=== PATIENT | female | born 1990 | race Caucasian/White ===

== ENCOUNTER 2016-07-30 10:05 | Inpatient (IN) | payer SELFPAY ==
[~2016-07-30] VITALS: Ht 162.6 cm; Wt 54.5 kg
[2016-07-30] VITALS (7 sets, daily range): BP systolic 100–137; BP diastolic 61–98; PULSE 62–112; RESP 15–20; TEMP 97.8–98.1; O2SAT 96–99
[~2016-07-30 10:05] MED LIST: CIPR-9 PO; FAMO20TA2 PO; FERR325T PO; MULT-135 PO; OXYC20TA17 PO; PROB1CAP12 PO; SENN1TAB PO; SUBO2MIS SL; XARE15TA PO; XARE20TA PO
--- NOTE | 2016-07-30 11:29 | PD ---
HPI Chief Complaint: Pain: Acute or Chronic Time Seen by Provider: 11:29 Travel History International Travel<30 days: No Contact w/Intl Traveler<30days: No Traveled to known affect area: No History of Present Illness HPI 25-year-old female with a history of IV drug use, endocarditis, DVT, septic pulmonary emboli presents to the emergency department for evaluation of chest wall pain and right thigh pain. Patient states that she left AMA from [facility] 2 weeks ago after having a valve replacement with pacemaker implantation about 3 weeks ago. States that she's had chest wall pain that she describes as soreness and is concerned because she still has wires coming from her right chest wall. States she's had a productive cough for the past several days with mild shortness of breath. States that yesterday she began to have pain in her right anterior thigh, states there is a tender lump on the thigh, aggravated with movement and weightbearing. Denies any injury or trauma to her leg. Complains of subjective fever and chills. Denies lightheadedness, dizziness, nausea, vomiting, abdominal pain. She admits to using IV drug use twice since she was discharged from the hospital, last used heroin one week ago. She has not followed up with her cardiothoracic surgeon and since she left AM she has been on no medications. No other complaints. PFSH Past Medical History Autoimmune Disease: No Anxiety: Yes Depression: Yes Cancer: Yes Cardiovascular Problems: Yes Diminished Hearing: No Endocrine: No Genitourinary: Yes (ENDOMETRIOSIS) Hypertension: Yes Immune Disorder: No Implanted Vascular Access Dvce: No Kidney Stones: Yes Musculoskeletal: Yes (SCOLIOSIS) Psychiatric: No Reproductive: Yes (endometriosis) Immunizations Current: Yes Seizures: Yes (only when pt comes off anxiety medications) Tetanus Vaccination: < 5 Years ?: Not Menopausal: No Ovarian Cysts: Yes Past Surgical History Other Surgery: Yes (valve replacement, pacemaker 2 weeks ago july 2016 ) Social History Alcohol Use: Yes (750ML DAILY) Tobacco Use: Yes Substance Use: Yes (heroin, OPIATES , IV DRUG ABUSE , LAST USE ) Allergies-Medications (Allergen,Severity, Reaction): Coded Allergies: Amoxicillin (Verified Allergy, Severe, hive, 07/30/16) Tolerated Cephalosporins well. Aspirin (Verified Allergy, Severe, BLEEDING, 07/30/16) Azithromycin (Verified Allergy, Severe, HIVES, 07/30/16) Latex (Verified Allergy, Severe, Anaphylaxis, 07/30/16) *MDRO Multi-Drug Resistant Organism (Verified Adverse Reaction, Unknown, ) MRSA PCR Screen POSITIVE - 02/26/2016 Reported Meds & Prescriptions Reported Meds & Active Scripts Active No Active Prescriptions or Reported Medications Review of Systems Except as stated in HPI: all other systems reviewed are Neg Physical Exam Narrative GENERAL: Well-nourished and well-developed female patient in no acute distress. SKIN: Warm and dry. HEAD: Normocephalic and atraumatic. EYES: No injection, drainage, or hyphema noted. PERRLA. EOMI. ENT: No nasal drainage noted. Oropharynx is clear. NECK: Supple and the trachea is midline. CARDIOVASCULAR: Regular rate and rhythm. RESPIRATORY: Left lower lobe wheeze. No accessory muscle use, rhonchi, or crackles. CHEST: There is a healing surgical incision to right upper chest wall with no erythema or warmth. There are two healing incisions to right lower chest wall, one has 2 blue pacer wires coming out, no surrounding erythema or warmth. Pacemaker surgical site noted to be healing well with no signs of infection. Patient has global chest wall tenderness. GASTROINTESTINAL: Abdomen is soft, non-tender, and nondistended. MUSCULOSKELETAL: There is slight swelling to right anterior thigh just above the knee with exquisite tenderness to palpation. No obvious deformities, cyanosis, or ecchymosis is present throughout the upper and lower extremities. Patient has full range of motion without any signs of neurovascular compromise. DP pulses are 2+ bilaterally. NEUROLOGICAL: Awake, alert, and oriented. Normal speech and gait. Cranial nerves are grossly intact. Data Data Last Documented VS Vital Signs Date Time Temp Pulse Resp B/P Pulse Ox O2 Delivery O2 Flow Rate FiO2 07/30/16 14:57 106 20 117/75 99 07/30/16 10:07 98.1 Orders Electrocardiogram (07/30/16 11:28) Ckmb (Isoenzyme) Profile (07/30/16 11:28) Complete Blood Count With Diff (07/30/16 11:28) Comprehensive Metabolic Panel (07/30/16 11:28) Magnesium (Mg) (07/30/16 11:28) Prothrombin Time / Inr (Pt) (07/30/16 11:28) Act Partial Throm Time (Ptt) (07/30/16 11:28) Troponin I (07/30/16 11:28) Chest, Single Ap (07/30/16 11:28) Ecg Monitoring (07/30/16 11:28) Iv Access Insert/Monitor (07/30/16 11:28) Oximetry (07/30/16 11:28) Sodium Chloride 0.9% Flush (Ns Flush) (07/30/16 11:30) Ed Urine Pregnancytest Poc (07/30/16 11:28) Us Leg Venous Doppler (07/30/16 ) Lactic Acid Sepsis Protocol (07/30/16 11:30) C-Reactive Protein (Crp) (07/30/16 11:32) Westergren Sedimentation Rate (07/30/16 11:32) Femur (Ap & Lat/2vws) (07/30/16 ) Blood Culture (07/30/16 11:40) Ct Pulmonary Angiogram (07/30/16 12:43) Iohexol 350 Inj (Omnipaque 350 Inj) (07/30/16 13:33) Lorazepam Inj (Ativan Inj) (07/30/16 14:00) Hydromorphone Pf Inj (Dilaudid Pf Inj) (07/30/16 15:00) Admit To Inpatient (07/30/16 ) Code Status (07/30/16 15:21) Vital Signs (Adult) Q4H (07/30/16 15:21) Activity Oob Ad Glenda (07/30/16 15:21) Bedside Glucose JULES.AC&HS (07/30/16 15:21) Sugar Presser / Telemetry .CONTINUOUS (07/30/16 15:21) Intake + Output JULES.QSHIFT (07/30/16 15:21) ^ Notify Dr: Other (07/30/16 15:21) Diet Heart Healthy (07/30/16 Dinner) Sodium Chlor 0.9% 1000 Ml Inj (Ns 1000 M (07/30/16 15:21) Sodium Chloride 0.9% Flush (Ns Flush) (07/30/16 15:30) Sodium Chloride 0.9% Flush (Ns Flush) (07/30/16 21:00) Acetaminophen (Tylenol) (07/30/16 15:30) Ondansetron Inj (Zofran Inj) (07/30/16 15:30) Metoclopramide Inj (Reglan Inj) (07/30/16 15:30) Bisacodyl Supp (Dulcolax Supp) (07/30/16 15:30) Docusate Sodium (Colace) (07/30/16 15:30) Basic Metabolic Panel (Bmp) (07/31/16 06:00) Complete Blood Count With Diff (07/31/16 06:00) Creatine Kinase (Cpk) (07/30/16 15:21) Creatine Kinase (Cpk) (07/30/16 21:21) Troponin I (07/30/16 15:21) Troponin I (07/30/16 21:21) Prothrombin Time / Inr (Pt) (07/31/16 06:00) Blood Culture (07/30/16 15:21) Urinalysis - C+S If Indicated (07/30/16 15:21) Lipase (07/31/16 06:00) Enoxaparin Inj (Lovenox Inj) (07/30/16 15:30) Naloxone Inj (Narcan Inj) (07/30/16 15:30) Inpatient Certification (07/30/16 ) Labs Laboratory Tests Test 07/30/16 07/30/16 11:50 12:55 White Blood Count 10.1 TH/MM3 Red Blood Count 4.74 MIL/MM3 Hemoglobin 12.0 GM/DL Hematocrit 37.7 % Mean Corpuscular Volume 79.5 FL Mean Corpuscular Hemoglobin 25.4 PG Mean Corpuscular Hemoglobin 31.9 % Concent Red Cell Distribution Width 20.0 % Platelet Count 342 TH/MM3 Mean Platelet Volume 7.5 FL Neutrophils (%) (Auto) 55.6 % Lymphocytes (%) (Auto) 33.5 % Monocytes (%) (Auto) 6.4 % Eosinophils (%) (Auto) 3.4 % Basophils (%) (Auto) 1.1 % Neutrophils # (Auto) 5.6 TH/MM3 Lymphocytes # (Auto) 3.4 TH/MM3 Monocytes # (Auto) 0.6 TH/MM3 Eosinophils # (Auto) 0.3 TH/MM3 Basophils # (Auto) 0.1 TH/MM3 CBC Comment AUTO DIFF Differential Comment AUTO DIFF CONFIRMED Platelet Estimate NORMAL Platelet Morphology Comment NORMAL Sodium Level 138 MEQ/L Potassium Level 3.8 MEQ/L Chloride Level 105 MEQ/L Carbon Dioxide Level 25.6 MEQ/L Anion Gap 7 MEQ/L Blood Urea Nitrogen 9 MG/DL Creatinine 0.62 MG/DL Estimat Glomerular Filtration 116 ML/MIN Rate Random Glucose 95 MG/DL Lactic Acid Level 1.1 mmol/L Calcium Level 9.7 MG/DL Magnesium Level 2.1 MG/DL Total Bilirubin 0.7 MG/DL Aspartate Amino Transf 17 U/L (AST/SGOT) Alanine Aminotransferase 17 U/L (ALT/SGPT) Alkaline Phosphatase 131 U/L Total Creatine Kinase 43 U/L Troponin I LESS THAN 0.02 NG/ML C-Reactive Protein 1.91 MG/DL Total Protein 8.2 GM/DL Albumin 3.9 GM/DL Erythrocyte Sedimentation Rate 22 mm/hr Prothrombin Time 11.5 SEC Prothromb Time International 1.0 RATIO Ratio Activated Partial 26.5 SEC Thromboplast Time MDM Medical Decision Making Medical Screen Exam Complete: Yes Emergency Medical Condition: Yes Differential Diagnosis Pneumonia versus DVT versus endocarditis versus pleural effusion versus sepsis Narrative Course 25-year-old female with a history of IV drug use and endocarditis status post recent valve replacement 3 weeks ago presents to the emergency department for evaluation of chest wall pain, cough, shortness of breath and right thigh pain. Patient is afebrile. She is tachycardic with a heart rate of 112 bpm. Otherwise vital signs within normal limits. The patient has surgical scars noted on her chest wall from her recent surgery, all of which appear to be healing well with no signs of infection. There are however to pacer wires still inserted in the right lower wall. The patient left AGAINST MEDICAL ADVICE from [facility] 2 weeks ago, is not on any medications and continues to use IV drugs. EKG shows ventricular paced rhythm at 85 bpm, no evidence of acute ischemia as read by my attending physician Dr. San. IV access was obtained, labs have been drawn and sent. Patient is placed on cardiac telemetry and pulse oximetry monitoring. Records have been requested from [facility]. Per records from [facility] she had Tricuspid valve replacement 06/28/[address] Brown, [facility] dual chamber pacemaker implantation 07/05/[address] Odonnell for symptomatic bradycardia and complete heart block. CBC is unremarkable. Sedimentation rate is slightly elevated at 22. CMP is unremarkable. Troponin is less than 0.02. CRP is slightly elevated at 1.91. Lactic acid is 1.1. Coags are unremarkable. X-ray of the right femur is negative for any acute abnormalities. Ultrasound of right leg is negative for DVT. Chest x-ray shows dual-lead cardiac pacemaker in place, atelectasis or scarring in the right midlung, 6 cm rounded density in the right upper lung may represent object external to the patient or mass. CT pulmonary angiogram shows developing nodules in the right chest which are concerning for possible neoplastic process, largest nodule is identified bilaterally in the right upper lobe measuring 3.9 cm in diameter. Bihilar adenopathy has progressed from the prior study. This appears to result in an occlusion of the right lower lobe pulmonary artery with a high grade ostial stenosis of the left lower lobe pulmonary artery. There is no luminal filling defect seen to suggest pulmonary embolus. Findings are concerning for possible neoplastic process. I reviewed the medical records from the patient's recent admission at [facility]. She had a CT pulmonary angiogram performed their 06/19/16 that did not show these nodules in the right upper lobe. At that time it showed she had extensive pulmonary emboli with occlusion of lobar, segmental and subsegmental pulmonary arteries with bilateral lung infiltrates. These lung masses are new and the patient will need to be admitted to the hospital for further evaluation and treatment. Physician Communication Physician Communication My attending physician Dr. San spoke with Dr. Brown CT surgeon at [facility] regarding the patient's epidermal pacer wires and he recommended that they be cut to the skin. My attending physician Dr. San spoke with Dr. Gomez [facility] who agrees to admit the patient to his service. Diagnosis Primary Impression: Lung mass Additional Impressions: History of endocarditis S/P tricuspid valve replacement IV drug user Admitting Information Admitting Physician Requests: Admit Scripts No Active Prescriptions or Reported Meds Celsa Mcclellan Jul 30, 2016 11:29
[2016-07-30] MEDS ORDERED: SODIUM CHLORIDE 0.9% FLUSH 10 ML FLUSH IVF PRN (11:30)
--- NOTE | 2016-07-30 12:07 | RADRPT ---
EXAM DATE/TIME: 07/30/2016 11:46 [facility] COMPARISON: No previous studies available for comparison. INDICATIONS : Right leg swelling. MEDICAL HISTORY : Hypertension. Substance use. Endometriosis. Ovarian cysts. Kidney stones. MRSA. SURGICAL HISTORY : Pacemaker. ENCOUNTER: Initial ACUITY: 3 days PAIN SCORE: 4/10 LOCATION: Right leg. TECHNIQUE: Venous ultrasound of the leg was performed from the inguinal ligament to the proximal calf. Real-vanesa e, color Doppler and spectral tracing, compression and augmentation techniques were used. FINDINGS: There is normal compressibility of the deep venous system from the inguinal region to the proximal ca lf. No echogenic clot is seen in the lumen of the common femoral, femoral, popliteal, and posterior tibial veins. There is a normal response of the venous system to proximal and distal augmentation an d respiration. CONCLUSION: 1. No evidence of deep venous thrombosis. Hua Wise MD on July 30, 2016 at 12:05 Board Certified Radiologist. This report was verified electronically.
--- NOTE | 2016-07-30 12:10 | RADRPT ---
EXAM DATE/TIME: 07/30/2016 11:40 [facility] COMPARISON: CHEST SINGLE AP, March 24, 2016, 23:27. INDICATIONS : Patient states no known injury, just having pain all over. MEDICAL HISTORY : Hypertension. Endometriosis. SURGICAL HISTORY : Pacemaker. ENCOUNTER: Initial ACUITY: 1 day PAIN SCORE: 10/10 LOCATION: Bilateral chest FINDINGS: Single AP view of the chest. Dual-lead cardiac pacemaker is in place. 6 cm ovoid density is seen in t he right upper lung zone. May represent object external to the patient. Mild scarring or atelectasis in the right midlung. No evidence of pleural effusion or pneumothorax. Cardiomediastinal silhouette u nchanged. CONCLUSION: 1. Dual lead cardiac pacemaker in place. 2. Minimal atelectasis or scarring in the right midlung. 3. 6 cm rounded density in the right upper lung zone may represent an object external to the patient or a mass. Recommend examination of the patient for objects in this region. Monster Jose MD on July 30, 2016 at 12:05 Board Certified Radiologist. This report was verified electronically.
[2016-07-30 12:15] LABS: AUTOMATED NEUTROPHIL # 5.6 TH/MM3 (1.8-7.7); BASOPHIL # 0.1 TH/MM3 (0-0.2); BASOPHIL % 1.1 % (0.0-2.0); EOSINOPHIL # 0.3 TH/MM3 (0-0.4); EOSINOPHIL % 3.4 % (0.0-4.0); HEMATOCRIT 37.7 % (35.0-46.0); LYMPH % 33.5 % (9.0-44.0); LYMPHOCYTE # 3.4 TH/MM3 (1.0-4.8); MEAN CELL VOLUME 79.5 FL (80.0-100.0); MEAN CORPUSCULAR HEMOGLOBIN 25.4 PG (27.0-34.0); MEAN CORPUSCULAR HGB CONC 31.9 % (32.0-36.0); MONO % 6.4 % (0.0-8.0); NEUT % 55.6 % (16.0-70.0); PLATELET COUNT 342 TH/MM3 (150-450); RED BLOOD COUNT 4.74 MIL/MM3 (4.00-5.30); WHITE BLOOD COUNT 10.1 TH/MM3 (4.0-11.0)
[2016-07-30 12:19] LABS: HEMO FLAGS AUTO DIFF
[2016-07-30 12:23] LABS: ALT (GPT) 17 U/L (10-53); ANION GAP 7 MEQ/L (5-15); AST (GOT) 17 U/L (15-37); BICARBONATE 25.6 MEQ/L (21.0-32.0); BLOOD UREA NITROGEN 9 MG/DL (7-18); CHLORIDE 105 MEQ/L (98-107); GLOMERULAR FILTRATION RATE 116 ML/MIN (>89); MAGNESIUM 2.1 MG/DL (1.5-2.5); POTASSIUM 3.8 MEQ/L (3.5-5.1); SODIUM (NA) 138 MEQ/L (136-145)
[2016-07-30 12:27] LABS: ALKALINE PHOSPHATASE 131 U/L (45-117); TOTAL BILIRUBIN ADULT 0.7 MG/DL (0.2-1.0)
[2016-07-30 12:36] LABS: CREATINE KINASE 43 U/L (26-192)
[2016-07-30 12:47] LABS: PLATELET ESTIMATE SMEAR NORMAL (NORMAL); PLATELET MORPHOLOGY NORMAL (NORMAL); SCAN/DIFF AUTO DIFF CONFIRMED
[2016-07-30 13:25] LABS: APTT (PATIENT) 26.5 SEC (24.3-30.1); PROTHROMBIN TIME - PATIENT 11.5 SEC (9.8-11.6)
[2016-07-30] MEDS ORDERED: IOHEXOL 350 MG/ML 10 ML VIAL (for RAD DIAG) IV ONE (13:33)
--- NOTE | 2016-07-30 13:54 | RADRPT ---
EXAM DATE/TIME: 07/30/2016 12:36 [facility] COMPARISON: No previous studies available for comparison. INDICATIONS : Distal right lateral femur pain. No known injury. MEDICAL HISTORY : Hypertension. Renal calculi. Endometriosis. Ovarian cysts. MRSA. Substance use. SURGICAL HISTORY : Pacemaker. ENCOUNTER: Initial ACUITY: 2 days PAIN SCORE: 7/10 LOCATION: Right distal lateral femur FINDINGS: 4 views of the right femur. Bone alignment within normal limits. No evidence of fracture. CONCLUSION: No evidence of fracture. Monster Jose MD on July 30, 2016 at 13:52 Board Certified Radiologist. This report was verified electronically.
[2016-07-30] MEDS ORDERED: LORazepam 2 MG/ML VIAL IV PUSH ONE (14:00)
--- NOTE | 2016-07-30 14:25 | RADRPT ---
EXAM DATE/TIME: 07/30/2016 13:07 This report includes an Addendum and supersedes previous reports for this exam. [facility] COMPARISON: CT PULMONARY ANGIOGRAM, April 01, 2016, 11:01. INDICATIONS : Chest pain. IV CONTRAST: 75 cc Omnipaque 350 (iohexol) IV RADIATION DOSE: 75 CTDIvol (mGy) MEDICAL HISTORY : Hypertension. Cancer. SURGICAL HISTORY : Pacemaker. Valve replacement. ENCOUNTER: Initial ACUITY: 2 days PAIN SCALE: 10/10 LOCATION: Bilateral chest TECHNIQUE: Volumetric scanning of the chest was performed using a pulmonary embolism protocol MIP images were re constructed. Using automated exposure control and adjustment of the mA and/or kV according to patien t size, radiation dose was kept as low as reasonably achievable to obtain optimal diagnostic quality images. FINDINGS: PULMONARY ARTERIES: While I do not see an actual filling defect in the pulmonary artery, there appears to be complete occ lusion of the right lower lobe pulmonary artery. I believe this is due to external compression as the re is regional bulky adenopathy. Similarly, a high grade stenosis involves the origin of the left low er lobe pulmonary artery. LUNGS: There is some atelectatic changes or scarring laterally in the left base adjacent diaphragm. However, there are now nodular densities in developing in the right lower lobe extending from the bulky adeno jorge luis in the right hilar region. These measure upwards 1.7 cm in diameter. The largest nodule is pleu ral-based laterally in the right upper lung measuring 3.9 cm in diameter. PLEURAE: Large, 3.9 cm pleural-based nodule in the lateral right upper extremity some pleural thickening poste riorly in the right hemithorax. MEDIASTINUM: By hilar prominent lymph nodes, right greater than left. Anatomic variant of the aortic arch with the left vertebral emanating directly from the arch MUSCULOSKELETAL: Within normal limits for patient age. MISCELLANEOUS: The visualized upper abdominal organs demonstrate no acute abnormality. CONCLUSION: 1. Patient has a history of septic emboli. However, there are developing nodules particularly in the right chest which are concerning for a possible neoplastic process. Largest nodule is identified late rally in the right upper lobe measuring 3.9 cm in diameter. 2. Bihilar adenopathy has progressed from the prior study. In fact, this appears to result in occlusi on of the right lower lobe pulmonary artery with a high-grade ostial stenosis of the left lower lobe pulmonary artery. 3. I do not see a luminal filling defect to suggest pulmonary embolus, however. Again, findings are c oncerning for possible neoplastic process José Valderrama MD on July 30, 2016 at 14:13 Board Certified Radiologist. This report was verified electronically. ADDENDUM: I discussed this case with Dr. San from the emergency department. He states the patient is a known I V drug user with a recent valvular replacement. With this information, this could again represent lar ge septic emboli pre-cavitation. The bulky hilar adenopathy may also be related to the infectious pro cess and could still be causing external compression on the pulmonary arteries. Also noted is occlusi on of one of the lower lobe branch vessels to the lateral left lower lobe. The nodular lesions would be amenable to biopsy if clinically warranted. José Valderrama MD on July 30, 2016 at 14:41 Board Certified Radiologist. This report was verified electronically.
[2016-07-30] MEDS ORDERED: HYDROmorphone HCL PF 1 MG/ML VIAL IV PUSH ONE (15:00)
[2016-07-30] MEDS ORDERED: NALOXONE HCL 0.4 MG/ML AMP IV PRN (15:30)
[2016-07-30] MEDS ORDERED: BISACODYL 10 MG SUPP PR PRN (15:30)
[2016-07-30] MEDS ORDERED: SODIUM CHLORIDE 0.9% FLUSH 10 ML FLUSH IV FLUSH PRN (15:30)
[2016-07-30] MEDS ORDERED: ONDANSETRON HCL 4 MG/2 ML VIAL IVP PRN (15:30)
[2016-07-30] MEDS ORDERED: METOCLOPRAMIDE HCL 10 MG/2 ML VIAL IV PUSH PRN (15:30)
[2016-07-30] MEDS ORDERED: ACETAMINOPHEN 325 MG TAB PO PRN (15:30)
--- NOTE | 2016-07-30 15:39 | HHI.HP ---
[facility] No Primary Care Physician Admission Diagnosis lung mass, rule out bacteremia/endocarditis Diagnoses: Chief Complaint: Chest pain Travel History International Travel<30 Days: No Contact w/Intl Traveler <30 Da: No Traveled to Known Affected Are: No History of Present Illness This is a pleasant 25 y/o Female with history of IV drug abuse, Endocarditis, DVT , septic Pulmonary Emboli, who came to Emergency department with chest wall pain and right thigh pain, she left AMA from [facility] 2 weeks ago after having a valve replacement with pacemaker Implantation about 3 weeks ago, had chest wall pain that she describes as soreness and is concerned because she still has wires coming from her right chest wall. States she's had a productive cough for the past several days with mild shortness of breath. States that yesterday she began to have pain in her right anterior thigh, states there is a tender lump on the thigh, aggravated with movement and weightbearing. Denies any injury or trauma to her leg. Complains of subjective fever and chills. Denies lightheadedness, dizziness, nausea, vomiting, abdominal pain. She admits to using IV drug use twice since she was discharged from the hospital, last used heroin one week ago. She has not followed up with her cardiothoracic surgeon and since she left [place] she has been on no medications. Stable seen in the room in the presence of nurse at all times, the patient answers my questions with attitude and starts talking with her Cellphone trying to avoid me, the nurse asked her to stop using her phone, and she answered my questions, states her pain is generalized on all her chest. Review of Systems Cardiovascular: COMPLAINS OF: Chest pain Past Family Social History Past Medical History Anxiety Disorder Depression Endometriosis Hypertension Kidney stones Seizure disorder by history Past Surgical History Valve replacement, pacemaker 2 weeks ago july 2016 Reported Medications Reported Meds & Active Scripts Active No Active Prescriptions or Reported Medications Allergies: Coded Allergies: Amoxicillin (Verified Allergy, Severe, hive, 07/30/16) Tolerated Cephalosporins well. Aspirin (Verified Allergy, Severe, BLEEDING, 07/30/16) Azithromycin (Verified Allergy, Severe, HIVES, 07/30/16) Latex (Verified Allergy, Severe, Anaphylaxis, 07/30/16) *MDRO Multi-Drug Resistant Organism (Verified Adverse Reaction, Unknown, ) MRSA PCR Screen POSITIVE - 02/26/2016 Active Ordered Medications Current Medications Medications (Trade) Dose Ordered Sig/Neto Route Start Time Stop Time Status Last Admin (NS Flush) 2 ml UNSCH PRN IVF 07/30/16 11:30 Family History She states I do not know. Social History Alcohol abuse daily heavy tobacco dependence Heroin, Opiates, IV drug abuse. Physical Exam Vital Signs Vital Signs Date Time Temp Pulse Resp B/P Pulse Ox O2 Delivery O2 Flow Rate FiO2 07/30/16 14:57 106 20 117/75 99 07/30/16 12:44 99 07/30/16 10:07 98.1 112 17 137/98 96 Physical Exam GENERAL: Well-nourished and well-developed female patient in no acute distress. SKIN: Warm and dry. HEAD: Normocephalic and atraumatic. EYES: No injection, drainage, or hyphema noted. PERRLA. EOMI. ENT: No nasal drainage noted. Oropharynx is clear. NECK: Supple and the trachea is midline. CARDIOVASCULAR: Regular rate and rhythm. RESPIRATORY: Left lower lobe wheeze. No accessory muscle use, rhonchi, or crackles. CHEST: There is a healing surgical incision to right upper chest wall with no erythema or warmth. There are two healing incisions to right lower chest wall, one has 2 blue pacer wires coming out, no surrounding erythema or warmth. Pacemaker surgical site noted to be healing well with no signs of infection. Patient has global chest wall tenderness. GASTROINTESTINAL: Abdomen is soft, non-tender, and nondistended. MUSCULOSKELETAL: There is slight swelling to right anterior thigh just above the knee with exquisite tenderness to palpation. No obvious deformities, cyanosis, or ecchymosis is present throughout the upper and lower extremities. Patient has full range of motion without any signs of neurovascular compromise. DP pulses are 2+ bilaterally. NEUROLOGICAL: Awake, alert, and oriented. Normal speech and gait. Cranial nerves are grossly intact. Laboratory Laboratory Tests Test 07/30/16 07/30/16 11:50 12:55 White Blood Count 10.1 Red Blood Count 4.74 Hemoglobin 12.0 Hematocrit 37.7 Mean Corpuscular Volume 79.5 Mean Corpuscular Hemoglobin 25.4 Mean Corpuscular Hemoglobin 31.9 Concent Red Cell Distribution Width 20.0 Platelet Count 342 Mean Platelet Volume 7.5 Neutrophils (%) (Auto) 55.6 Lymphocytes (%) (Auto) 33.5 Monocytes (%) (Auto) 6.4 Eosinophils (%) (Auto) 3.4 Basophils (%) (Auto) 1.1 Neutrophils # (Auto) 5.6 Lymphocytes # (Auto) 3.4 Monocytes # (Auto) 0.6 Eosinophils # (Auto) 0.3 Basophils # (Auto) 0.1 CBC Comment AUTO DIFF Differential Comment AUTO DIFF CONFIRMED Platelet Estimate NORMAL Platelet Morphology Comment NORMAL Sodium Level 138 Potassium Level 3.8 Chloride Level 105 Carbon Dioxide Level 25.6 Anion Gap 7 Blood Urea Nitrogen 9 Creatinine 0.62 Estimat Glomerular Filtration 116 Rate Random Glucose 95 Lactic Acid Level 1.1 Calcium Level 9.7 Magnesium Level 2.1 Total Bilirubin 0.7 Aspartate Amino Transf 17 (AST/SGOT) Alanine Aminotransferase 17 (ALT/SGPT) Alkaline Phosphatase 131 Total Creatine Kinase 43 Troponin I LESS THAN 0.02 C-Reactive Protein 1.91 Total Protein 8.2 Albumin 3.9 Erythrocyte Sedimentation Rate 22 Prothrombin Time 11.5 Prothromb Time International 1.0 Ratio Activated Partial 26.5 Thromboplast Time Date/Time Procedure Status Source Growth 07/30/16 12:30 Aerobic Blood Culture Received Blood Peripheral Pending 07/30/16 12:30 Anaerobic Blood Culture Received Blood Peripheral Pending Result Diagram: 07/30/16 1150 07/30/16 [address] Angiography 07/30/16 1243 Signed Impressions: Service Date/Time: Saturday, July 30, 2016 13:07 - CONCLUSION: 1. Patient has a history of septic emboli. However, there are developing nodules particularly in the right chest which are concerning for a possible neoplastic process. Largest nodule is identified laterally in the right upper lobe measuring 3.9 cm in diameter. 2. Bihilar adenopathy has progressed from the prior study. In fact , this appears to result in occlusion of the right lower lobe pulmonary artery with a high-grade ostial stenosis of the left lower lobe pulmonary artery. 3. I do not see a luminal filling defect to suggest pulmonary embolus, however. Again, findings are concerning for possible neoplastic process José Valderrama MD ADDENDUM: I discussed this case with Dr. San from the emergency department. He states the patient is a known IV drug user with a recent valvular replacement. With this information, this could again represent large septic emboli pre-cavitation. The bulky hilar adenopathy may also be related to the infectious process and could still be causing external compression on the pulmonary arteries. Also noted is occlusion of one of the lower lobe branch vessels to the lateral left lower lobe. The nodular lesions would be amenable to biopsy if clinically warranted. José Valderrama MD Chest X-Ray 07/30/16 1128 Signed Impressions: Service Date/Time: Saturday, July 30, 2016 11:40 - CONCLUSION: 1. Dual lead cardiac pacemaker in place. 2. Minimal atelectasis or scarring in the right midlung. 3. 6 cm rounded density in the right upper lung zone may represent an object external to the patient or a mass. Recommend examination of the patient for objects in this region. Monster Jose MD Lower Extremity Ultrasound 07/30/16 0000 Signed Impressions: Service Date/Time: Saturday, July 30, 2016 11:46 - CONCLUSION: 1. No evidence of deep venous thrombosis. Hua Wise MD Femur X-Ray 07/30/16 0000 Signed Impressions: Service Date/Time: Saturday, July 30, 2016 12:36 - CONCLUSION: No evidence of fracture. Monster Jose MD Assessment and Plan Problem List: (1) Posttraumatic stress disorder ICD Code: F43.10 Status: Acute (2) Anxiety ICD Code: F41.9 Status: Acute (3) Lung mass ICD Code: R91.8 Status: Acute (4) History of endocarditis ICD Code: Z86.79 Status: Acute Assessment and Plan 1. IV drug abuse history asked for new Drug Screen even she states she abuses heroin last time one week ago. 2. Status post recent valve replacement 3 weeks ago, had Tricuspid valve replacement on 06/28/[address] by Doctor Brown and dual chamber pacemaker implantation 07/05/[address] Odonnell for symptomatic Bradycardia for complete heart block will start Anticoagulation and follow ID specialist recommendations to ask for Interventional radiology for possible Biopsy. asked for new Echocardiogram now. 3. Atypical chest pain continue Hospitalized, cardiac enzymes, cardiac monitoring. 4. Tobacco dependence strongly recommended to stop smoking 5. Alcohol abuse strongly recommended to stop alcohol abuse but the patient states she only abused Heroin and no alcohol lately. 6. Polysubstance abuse 7. severe Medical Non Compliance 8. Lung Mass questionable will follow first recommendations by ID specialist to get Interventional radiology biopsy. 9. Endocarditis but no signs of infection at this time, will follow ID specialist recommendations, asked for blood cultures. Echocardiogram followed off antibiotics. CBC is unremarkable. Sedimentation rate is slightly elevated at 22. CMP is unremarkable. Troponin is less than 0.02. CRP is slightly elevated at 1.91. Lactic acid is 1.1. Coags are unremarkable. X-ray of the right femur is negative for any acute abnormalities. Ultrasound of right leg is negative for DVT. Chest x-ray shows dual-lead cardiac pacemaker in place, atelectasis or scarring in the right midlung, 6 cm rounded density in the right upper lung may represent object external to the patient or mass. CT pulmonary angiogram shows developing nodules in the right chest which are concerning for possible neoplastic process, largest nodule is identified bilaterally in the right upper lobe measuring 3.9 cm in diameter. Bi-hilar adenopathy has progressed from the prior study. This appears to result in an occlusion of the right lower lobe pulmonary artery with a high grade ostial stenosis of the left lower lobe pulmonary artery. There is no luminal filling defect seen to suggest pulmonary embolus. Findings are concerning for possible neoplastic process. I reviewed the medical records from the patient's recent admission at [facility]. She had a CT pulmonary angiogram performed their 06/19/16 that did not show these nodules in the right upper lobe. At that time it showed she had extensive pulmonary emboli with occlusion of lobar, segmental and subsegmental pulmonary arteries with bilateral lung infiltrates. doctor San discussed with Doctor Stephanie CT Surgeon at [facility] regarding the patient's epidermal pacer wires and he recommended that can be cut to the skin and was done. These lung masses are new and the patient will need to be admitted to the hospital for further evaluation and treatment. Discussed with Doctor San has to be ruled out Lung mass probable IR to evaluate , rule out infection history of Endocarditis, Status post Tricuspid valve replacement Code Status Full code. Discussed Condition With Patient and nurse in the room Discussed with Emergency Medicine specialist doctor Germain San appreciated input and recommendations. Physician Certification 2 Midnight Certification Type: Admission for Inpatient Services Order for Inpatient Services The services are ordered in accordance with Medicare regulations or non- Medicare payer requirements, as applicable. In the case of services not specified as inpatient-only, they are appropriately provided as inpatient services in accordance with the 2-midnight benchmark. Estimated LOS (days): 3 days is the estimated time the patient will need to remain in the hospital, assuming treatment plan goals are met and no additional complications. Post-Hospital Plan: Not yet determined Joshua Glez MD Jul 30, 2016 15:39
[2016-07-30 15:56] LABS: BLOOD, URINE NEG (NEG); CALCIUM OXALATE CRYSTALS,URINE MOD /hpf; COMMENT (UR) CULT NOT INDICATED; CULTURE IF INDICATED CULT NOT INDICATED; GLUCOSE,URINE NEG (NEG); HYALINE CAST, URINE 1 /lpf (RARE); KETONE, URINE NEG (NEG); MUCUS URINE MANY /lpf (OCC); NITRITE,URINE NEG (NEG); PH, URINE 5.5 (5.0-8.5); SQUAMOUS EPITHELIAL CELL URINE 5 /hpf (0-5); URINE COLOR YELLOW (YELLW/STRAW)
[2016-07-30 15:59] LABS: BARBITURATES, URINE NEG (NEG)
[2016-07-30] MEDS ORDERED: SODIUM CHLOR 0.9% 1000 ML INJ 1,000 ML IV SCH (16:00)
[2016-07-30 16:04] LABS: AMPHETAMINE, URINE POS (NEG); COCAINE, URINE POS (NEG)
--- NOTE | 2016-07-30 16:09 | PD ---
Data Data Last Documented VS Vital Signs Date Time Temp Pulse Resp B/P Pulse Ox O2 Delivery O2 Flow Rate FiO2 07/30/16 14:57 106 20 117/75 99 07/30/16 10:07 98.1 Orders Electrocardiogram (07/30/16 11:28) Ckmb (Isoenzyme) Profile (07/30/16 11:28) Complete Blood Count With Diff (07/30/16 11:28) Comprehensive Metabolic Panel (07/30/16 11:28) Magnesium (Mg) (07/30/16 11:28) Prothrombin Time / Inr (Pt) (07/30/16 11:28) Act Partial Throm Time (Ptt) (07/30/16 11:28) Troponin I (07/30/16 11:28) Chest, Single Ap (07/30/16 11:28) Ecg Monitoring (07/30/16 11:28) Iv Access Insert/Monitor (07/30/16 11:28) Oximetry (07/30/16 11:28) Sodium Chloride 0.9% Flush (Ns Flush) (07/30/16 11:30) Ed Urine Pregnancytest Poc (07/30/16 11:28) Us Leg Venous Doppler (07/30/16 ) Lactic Acid Sepsis Protocol (07/30/16 11:30) C-Reactive Protein (Crp) (07/30/16 11:32) Westergren Sedimentation Rate (07/30/16 11:32) Femur (Ap & Lat/2vws) (07/30/16 ) Blood Culture (07/30/16 11:40) Ct Pulmonary Angiogram (07/30/16 12:43) Iohexol 350 Inj (Omnipaque 350 Inj) (07/30/16 13:33) Lorazepam Inj (Ativan Inj) (07/30/16 14:00) Hydromorphone Pf Inj (Dilaudid Pf Inj) (07/30/16 15:00) Admit To Inpatient (07/30/16 ) Code Status (07/30/16 15:21) Vital Signs (Adult) Q4H (07/30/16 15:21) Activity Oob Ad Glenda (07/30/16 15:21) Bedside Glucose JULES.AC&HS (07/30/16 15:21) Ferris Wheel Attendant / Telemetry .CONTINUOUS (07/30/16 15:21) Intake + Output JULES.QSHIFT (07/30/16 15:21) ^ Notify Dr: Other (07/30/16 15:21) Diet Heart Healthy (07/30/16 Dinner) Sodium Chlor 0.9% 1000 Ml Inj (Ns 1000 M (07/30/16 16:00) Sodium Chloride 0.9% Flush (Ns Flush) (07/30/16 15:30) Sodium Chloride 0.9% Flush (Ns Flush) (07/30/16 21:00) Acetaminophen (Tylenol) (07/30/16 15:30) Ondansetron Inj (Zofran Inj) (07/30/16 15:30) Metoclopramide Inj (Reglan Inj) (07/30/16 15:30) Bisacodyl Supp (Dulcolax Supp) (07/30/16 15:30) Docusate Sodium (Colace) (07/30/16 21:00) Basic Metabolic Panel (Bmp) (07/31/16 06:00) Complete Blood Count With Diff (07/31/16 06:00) Creatine Kinase (Cpk) (07/30/16 15:21) Creatine Kinase (Cpk) (07/30/16 21:21) Troponin I (07/30/16 15:21) Troponin I (07/30/16 21:21) Prothrombin Time / Inr (Pt) (07/31/16 06:00) Blood Culture (07/30/16 15:21) Urinalysis - C+S If Indicated (07/30/16 15:21) Lipase (07/31/16 06:00) Enoxaparin Inj (Lovenox Inj) (07/30/16 18:00) Naloxone Inj (Narcan Inj) (07/30/16 15:30) Inpatient Certification (07/30/16 ) Consult Infectious Disease (07/30/16 ) Admit Order (Ed Use Only) (07/30/16 ) Labs Laboratory Tests Test 07/30/16 07/30/16 11:50 12:55 White Blood Count 10.1 TH/MM3 Red Blood Count 4.74 MIL/MM3 Hemoglobin 12.0 GM/DL Hematocrit 37.7 % Mean Corpuscular Volume 79.5 FL Mean Corpuscular Hemoglobin 25.4 PG Mean Corpuscular Hemoglobin 31.9 % Concent Red Cell Distribution Width 20.0 % Platelet Count 342 TH/MM3 Mean Platelet Volume 7.5 FL Neutrophils (%) (Auto) 55.6 % Lymphocytes (%) (Auto) 33.5 % Monocytes (%) (Auto) 6.4 % Eosinophils (%) (Auto) 3.4 % Basophils (%) (Auto) 1.1 % Neutrophils # (Auto) 5.6 TH/MM3 Lymphocytes # (Auto) 3.4 TH/MM3 Monocytes # (Auto) 0.6 TH/MM3 Eosinophils # (Auto) 0.3 TH/MM3 Basophils # (Auto) 0.1 TH/MM3 CBC Comment AUTO DIFF Differential Comment AUTO DIFF CONFIRMED Platelet Estimate NORMAL Platelet Morphology Comment NORMAL Sodium Level 138 MEQ/L Potassium Level 3.8 MEQ/L Chloride Level 105 MEQ/L Carbon Dioxide Level 25.6 MEQ/L Anion Gap 7 MEQ/L Blood Urea Nitrogen 9 MG/DL Creatinine 0.62 MG/DL Estimat Glomerular Filtration 116 ML/MIN Rate Random Glucose 95 MG/DL Lactic Acid Level 1.1 mmol/L Calcium Level 9.7 MG/DL Magnesium Level 2.1 MG/DL Total Bilirubin 0.7 MG/DL Aspartate Amino Transf 17 U/L (AST/SGOT) Alanine Aminotransferase 17 U/L (ALT/SGPT) Alkaline Phosphatase 131 U/L Total Creatine Kinase 43 U/L Troponin I LESS THAN 0.02 NG/ML C-Reactive Protein 1.91 MG/DL Total Protein 8.2 GM/DL Albumin 3.9 GM/DL Erythrocyte Sedimentation Rate 22 mm/hr Prothrombin Time 11.5 SEC Prothromb Time International 1.0 RATIO Ratio Activated Partial 26.5 SEC Thromboplast Time [facility] Supervised Visit with ANASTASIA: Yes Narrative Course The history, exam, and medical decision-making in the associated mid-level provider note were completed with my assistance. I reviewed and agree with the findings presented. I attest that I had a [id number] encounter with the patient on the same day, and personally performed and documented my assessment and findings in the medical record. *My assessment and Findings: This is a complex 25-year-old woman history of endocarditis, recent admission for tricuspid valve endocarditis, septic pulmonary emboli, elevated right sided heart pressures, status post tricuspid valve replacement, with endocarditis complicated by symptomatically bradycardia, requiring pacemaker placement. She apparently left AMA couple days prior to discharge. It's unclear she completed antibiotics or not. She was also on blood thinners for her pulmonary emboli. She also still has her epicardial pacing wires in place. She is coming in because she's been feeling well, is worried that the chance cutaneous epicardial pacing wire site is infected, and she been having pain in her right thigh. Right thigh is tender and there is some palpable fullness that could suggest myositis or infection. Doppler ultrasound was negative. X-ray didn't show any evidence of osteomyelitis. CT of the chest shows a mass in the right apex with bulky adenopathy. Also shows narrowing of the pulmonary arteries from an external source, thought to be from the adenopathy. We got records from [facility] and in these findings seem to be new from a couple weeks ago. Could suggest malignancy but in this patient infectious etiology seem to be the most likely possibility. Patient cells a lot of anxiety regarding health care settings. She has recently used IV drugs since leaving the hospital. I spoke with the patient, I think she is to be readmitted. We will need to make sure that she still not having any bacteremia or evidence of endocarditis or sepsis. She may also need a biopsy of his lung mass see what the etiology is. I spoke with her CT surgeon, Stephanie, she was due to have these epicardial leads are previously removed. His recommendation was to apply gentle traction and clipped leads of the skin along to retract inside. There is some concern if he forcefully removed and that you could injure the epicardium. I did do this at the bedside. Patient tolerated well. Patient agrees to admission for further evaluation. Diagnosis Primary Impression: Lung mass Additional Impressions: History of endocarditis S/P tricuspid valve replacement IV drug user Scripts No Active Prescriptions or Reported Meds Germain San MD Jul 30, 2016 16:09
[2016-07-30 16:37] LABS: CREATINE KINASE 35 U/L (26-192)
--- NOTE | 2016-07-30 17:25 | MB ---
cc: DYLON VALENZUELA MD DATE OF CONSULTATION 07/30/[address] Gomez REASON FOR CONSULTATION Endocarditis. HISTORY OF PRESENT ILLNESS This is a 25-year-old white female who came to the emergency department with chest pain. She also noted right thigh pain as well. The patient recently underwent pacemaker implantation and tricuspid valve surgery approximately three weeks ago at [facility] and she signed out against medical advice two weeks ago. She was on IV antibiotics for endocarditis with intravenous Ancef. The patient states that she did not leave with any medications and has not taken any antibiotics since she left the hospital against medical advice. She is an IV drug user. She reportedly has used IV drugs since leaving the hospital. The patient is he is very difficult to interview at this time. She is reluctant to answer questions. She reports to me that she has told the other doctors her information. She proceeded to use her Smart phone to text while I was trying to interview her. She however allows me to examine her without difficulty. The patient denies headache or visual difficulties. She had a heart rate of 106 earlier. She is afebrile. Blood cultures have been obtained and the result is not available. Information on the recent hospitalization is not available at this time. The patient did not follow up with her cardiothoracic surgeon after she left the hospital against medical advice. A chest x-ray shows minimal atelectasis or scarring on the right mid lung and a 3.66 cm rounded density at the right upper lobe of the lung. CT angiography was performed and it shows bilateral adenopathy which has progressed from prior study and also developing nodules, particularly in the right chest, concerning for neoplastic process and largest nodule identified laterally in the right upper lung measuring 3.9 cm in diameter. The patient denies hemoptysis. PAST MEDICAL HISTORY 1. Anxiety disorder, depression, 2. Hypertension, 3. Kidney stones. 4. Endometriosis 5. History of seizure disorder 6. Tricuspid valve replacement, 6. Pacemaker implantation. ALLERGIES AMOXICILLIN AZITHROMYCIN ASPIRIN LATEX MEDICATIONS 1. Colace, 2. Lovenox. SOCIAL HISTORY Positive tobacco. Positive alcohol. Positive IV drug abuse in the form of heroin. The patient also uses opiates. FAMILY HISTORY Noncontributory. REVIEW OF SYSTEMS Pertinent as mentioned above in history of present illness. PHYSICAL EXAMINATION GENERAL: This is a thin female who is in no acute distress. She is alert and oriented. VITAL SIGNS: Temperature 98.1, BP 116/78, respirations 16, heart rate 62. HEENT: The head is atraumatic. Extraocular movements grossly intact, pupils reactive to light. No icterus. Oropharynx no visible lesions. Moist mucosa. NECK: Supple. No adenopathy. LUNGS: Decreased breath sounds throughout. HEART: Regular S1-S2 with a systolic murmur at the left sternal border. Left chest has a pacemaker in place and the incision appears intact. The right chest also has an incision at the anterior lateral aspect and that appears intact as well. ABDOMEN: Bowel sounds present, soft, nontender. RECTAL: Not performed. EXTREMITIES: No clubbing, cyanosis or edema. SKIN: No rash. No peripheral embolic lesions. LABORATORY DATA WBC 10.1, platelets 342, hemoglobin 12.0, 55% neutrophils, 33% lymphocytes, 6% monocytes, creatinine 0.62, BUN 9, sodium 138, AST 17, ALT 17. Toxicology screen positive for cannabinoids, cocaine, benzodiazepines and amphetamines. IMPRESSION 1. Endocarditis. The patient has known history of mitral valve endocarditis due to MSSA. Noncompliance with antibiotic treatment. The patient left the hospital against medical advice and has not received IV antibiotic medications for over one week. 2. Active IV drug abuse 3. Septic pulmonary emboli. RECOMMENDATIONS 1. Resume the patient's IV antibiotic treatment in the form of Ancef intravenous. 2. Monitor repeated blood cultures which are currently pending. 3. Obtain information from her recent hospitalization. 4. Monitor the lung lesions during antibiotic treatment. Because of interruption of the IV medications for endocarditis, the patient will need to be treated with a full course of IV antibiotics. She is at risk of severe complications and if she does not comply with the treatment and one major complication would be failure of the recently replaced heart valve. The patient was made aware of the fact that she is seriously ill and needs to comply with medical intervention. Thank you this consultation. Dylon Valenzuela MD FD/ /4:29 PM /4:59 PM KATHY
[2016-07-30] MEDS ORDERED: ENOXAPARIN SODIUM 40 MG/0.4 ML SYRINGE SQ SCH (18:00)
[2016-07-30] MEDS: DOCUSATE SODIUM 100 MG CAP PO SCH (21:00)
[2016-07-30] MEDS: ceFAZolin 2 GM PREMIX 50 ML IV SCH (21:19)
[2016-07-30] MEDS: SODIUM CHLORIDE 0.9% FLUSH 10 ML FLUSH IV FLUSH SCH (21:19)
--- NOTE | 2016-07-30 22:42 | EKG ---
Date Performed: 07/30/2016 Time Performed: 11:34:12 PTAGE: 25 years EKG: ELECTRONIC VENTRICULAR PACEMAKER PREVIOUS TRACING : 02/25/2016 16.10 Compared to the previous tracing paced rhythm present DOCTOR: Charles Trujillo Interpretating Date/Time 07/30/2016 22:40:55
[2016-07-30] MEDS ORDERED: HYDROmorphone HCL PF 1 MG/ML VIAL IV PRN (22:45)
[2016-07-30] MEDS: ENOXAPARIN SODIUM 60 MG/0.6 ML SYRINGE SQ SCH (23:30)
[2016-07-31] VITALS: BP 109/63; PULSE 77; RESP 18; TEMP 98; O2SAT 97
[2016-07-31 01:58] LABS: CREATINE KINASE 27 U/L (26-192)
[2016-07-31 04:00] VITALS: BP 126/68; PULSE 78; RESP 20; TEMP 98.6; O2SAT 94
[2016-07-31] MEDS: ceFAZolin 2 GM PREMIX 50 ML IV SCH (04:12)
[2016-07-31 07:00] LABS: BICARBONATE 24.4 MEQ/L (21.0-32.0); INTERNATIONAL NORMALIZED RATIO 1.1 RATIO; POTASSIUM 3.7 MEQ/L (3.5-5.1); PROTHROMBIN TIME - PATIENT 11.7 SEC (9.8-11.6)
[2016-07-31 07:22] LABS: AUTOMATED NEUTROPHIL # 5.1 TH/MM3 (1.8-7.7); BASOPHIL # 0.1 TH/MM3 (0-0.2); EOSINOPHIL # 0.3 TH/MM3 (0-0.4); EOSINOPHIL % 3.4 % (0.0-4.0); HEMATOCRIT 33.4 % (35.0-46.0); HEMO FLAGS DIFF FINAL; LYMPH % 22.6 % (9.0-44.0); LYMPHOCYTE # 1.7 TH/MM3 (1.0-4.8); MEAN CELL VOLUME 79.5 FL (80.0-100.0); MEAN CORPUSCULAR HGB CONC 31.4 % (32.0-36.0); MONO % 5.7 % (0.0-8.0); NEUT % 67.3 % (16.0-70.0); PLATELET COUNT 313 TH/MM3 (150-450); RED CELL DISTRIBUTION WIDTH 19.8 % (11.6-17.2); WHITE BLOOD COUNT 7.6 TH/MM3 (4.0-11.0)
[2016-07-31 08:00] VITALS: BP 107/64; PULSE 75; RESP 20; TEMP 97.7; O2SAT 97
[2016-07-31] MEDS: DOCUSATE SODIUM 100 MG CAP PO SCH (08:40)
[2016-07-31] MEDS: SODIUM CHLORIDE 0.9% FLUSH 10 ML FLUSH IV FLUSH SCH (08:41)
[2016-07-31] MEDS: ENOXAPARIN SODIUM 60 MG/0.6 ML SYRINGE SQ SCH (08:41)
--- NOTE | 2016-07-31 10:05 | HHI.PR ---
Subjective Remarks This is a pleasant 25 y/o Female with history of IV drug abuse, Endocarditis, DVT , septic Pulmonary Emboli, who came to Emergency department with chest wall pain and right thigh pain, she left AMA from [facility] 2 weeks ago after having a valve replacement with pacemaker Implantation about 3 weeks ago, had chest wall pain that she describes as soreness and is concerned because she still has wires coming from her right chest wall. States she's had a productive cough for the past several days with mild shortness of breath. States that yesterday she began to have pain in her right anterior thigh, states there is a tender lump on the thigh, aggravated with movement and weightbearing. Denies any injury or trauma to her leg. Complains of subjective fever and chills. Denies lightheadedness, dizziness, nausea, vomiting, abdominal pain. She admits to using IV drug use twice since she was discharged from the hospital, last used heroin one week ago. She has not followed up with her cardiothoracic surgeon and since she left AM she has been on no medications. 07/31 Seen by Infectious Disease specialist she has Endocarditis, history of Mitral Valve Endocarditis due to MSSA, Non compliance with antibiotic treatment, recommended to resume Ancef, monitor blood cultures, monitor lung lesions, Full course of antibiotics needed. seen in her bedroom in the presence at all times of nurse Miss Garcia, she is stable in the room and as per nurse she was telling he she wanted to leave the hospital 1600 I have been notified the patient left the Hospital without notice. Left AMA Objective Vital Signs Date Time Temp Pulse Resp B/P Pulse Ox O2 Delivery O2 Flow Rate FiO2 07/31/16 08:00 97.7 75 20 107/64 97 07/31/16 04:00 98.6 78 20 126/68 94 07/31/16 00:00 98.0 77 18 109/63 97 07/30/16 23:16 75 07/30/16 20:00 97.8 73 16 114/70 98 07/30/16 18:07 71 15 100/61 97 07/30/16 15:32 62 16 116/78 07/30/16 14:57 106 20 117/75 99 07/30/16 12:44 99 07/30/16 10:07 98.1 112 17 137/98 96 I/O 07/30/16 07/30/16 07/30/16 07/31/16 07/31/16 07/31/16 07:00 15:00 23:00 07:00 15:00 23:00 Intake Total 0 ml 240 ml Balance 0 ml 240 ml Intake Oral 0 ml 240 ml # Voids 0 0 # Bowel Movements 0 0 Result Diagram: 07/31/16 0605 07/31/16 [address] Angiography 07/30/16 1243 Signed Impressions: Service Date/Time: Saturday, July 30, 2016 13:07 - CONCLUSION: 1. Patient has a history of septic emboli. However, there are developing nodules particularly in the right chest which are concerning for a possible neoplastic process. Largest nodule is identified laterally in the right upper lobe measuring 3.9 cm in diameter. 2. Bihilar adenopathy has progressed from the prior study. In fact , this appears to result in occlusion of the right lower lobe pulmonary artery with a high-grade ostial stenosis of the left lower lobe pulmonary artery. 3. I do not see a luminal filling defect to suggest pulmonary embolus, however. Again, findings are concerning for possible neoplastic process José Valderrama MD ADDENDUM: I discussed this case with Dr. San from the emergency department. He states the patient is a known IV drug user with a recent valvular replacement. With this information, this could again represent large septic emboli pre-cavitation. The bulky hilar adenopathy may also be related to the infectious process and could still be causing external compression on the pulmonary arteries. Also noted is occlusion of one of the lower lobe branch vessels to the lateral left lower lobe. The nodular lesions would be amenable to biopsy if clinically warranted. José Valderrama MD Chest X-Ray 07/30/16 1128 Signed Impressions: Service Date/Time: Saturday, July 30, 2016 11:40 - CONCLUSION: 1. Dual lead cardiac pacemaker in place. 2. Minimal atelectasis or scarring in the right midlung. 3. 6 cm rounded density in the right upper lung zone may represent an object external to the patient or a mass. Recommend examination of the patient for objects in this region. Monster Jose MD Lower Extremity Ultrasound 07/30/16 0000 Signed Impressions: Service Date/Time: Saturday, July 30, 2016 11:46 - CONCLUSION: 1. No evidence of deep venous thrombosis. Hua Wise MD Femur X-Ray 07/30/16 0000 Signed Impressions: Service Date/Time: Saturday, July 30, 2016 12:36 - CONCLUSION: No evidence of fracture. Monster Jose MD Procedures No procedures performed. Other Results Laboratory Tests Test 07/30/16 07/30/16 07/30/16 07/31/16 11:50 12:55 15:35 00:45 Platelet Estimate NORMAL Platelet Morphology Comment NORMAL Lactic Acid Level 1.1 mmol/L Magnesium Level 2.1 MG/DL Total Bilirubin 0.7 MG/DL Aspartate Amino Transf 17 U/L (AST/SGOT) Alanine Aminotransferase 17 U/L (ALT/SGPT) Alkaline Phosphatase 131 U/L C-Reactive Protein 1.91 MG/DL Total Protein 8.2 GM/DL Albumin 3.9 GM/DL Erythrocyte Sedimentation Rate 22 mm/hr Activated Partial 26.5 SEC Thromboplast Time Urine Color YELLOW Urine Turbidity HAZY Urine pH 5.5 Urine Specific [place] 1.021 Urine Protein TRACE mg/dL Urine Glucose (UA) NEG mg/dL Urine Ketones NEG mg/dL Urine Occult Blood NEG Urine Nitrite NEG Urine Bilirubin NEG Urine Urobilinogen LESS THAN 2.0 MG/DL Urine Leukocyte Esterase NEG Urine RBC 3 /hpf Urine WBC 3 /hpf Urine Squamous Epithelial 5 /hpf Cells Urine Calcium Oxalate Crystals MOD /hpf Urine Hyaline Casts 1 /lpf Urine Mucus MANY /lpf Microscopic Urinalysis Comment CULT NOT INDICATED Urine Opiates Screen POS Urine Barbiturates Screen NEG Urine Amphetamines Screen POS Urine Benzodiazepines Screen POS Urine Cocaine Screen POS Urine Cannabinoids Screen POS Total Creatine Kinase 27 U/L Troponin I LESS THAN 0.02 NG/ML Test 07/31/16 06:05 White Blood Count 7.6 TH/MM3 Red Blood Count 4.20 MIL/MM3 Hemoglobin 10.5 GM/DL Hematocrit 33.4 % Mean Corpuscular Volume 79.5 FL Mean Corpuscular Hemoglobin 25.0 PG Mean Corpuscular Hemoglobin 31.4 % Concent Red Cell Distribution Width 19.8 % Platelet Count 313 TH/MM3 Mean Platelet Volume 7.7 FL Neutrophils (%) (Auto) 67.3 % Lymphocytes (%) (Auto) 22.6 % Monocytes (%) (Auto) 5.7 % Eosinophils (%) (Auto) 3.4 % Basophils (%) (Auto) 1.0 % Neutrophils # (Auto) 5.1 TH/MM3 Lymphocytes # (Auto) 1.7 TH/MM3 Monocytes # (Auto) 0.4 TH/MM3 Eosinophils # (Auto) 0.3 TH/MM3 Basophils # (Auto) 0.1 TH/MM3 CBC Comment DIFF FINAL Differential Comment Prothrombin Time 11.7 SEC Prothromb Time International 1.1 RATIO Ratio Sodium Level 141 MEQ/L Potassium Level 3.7 MEQ/L Chloride Level 107 MEQ/L Carbon Dioxide Level 24.4 MEQ/L Anion Gap 10 MEQ/L Blood Urea Nitrogen 6 MG/DL Creatinine 0.63 MG/DL Estimat Glomerular Filtration 114 ML/MIN Rate Random Glucose 89 MG/DL Calcium Level 8.9 MG/DL Lipase 57 U/L Objective Remarks GENERAL: Well-nourished and well-developed female patient in no acute distress. SKIN: Warm and dry. HEAD: Normocephalic and atraumatic. EYES: No injection, drainage, or hyphema noted. PERRLA. EOMI. ENT: No nasal drainage noted. Oropharynx is clear. NECK: Supple and the trachea is midline. CARDIOVASCULAR: Regular rate and rhythm. RESPIRATORY: Left lower lobe wheeze. No accessory muscle use, rhonchi, or crackles. CHEST: There is a healing surgical incision to right upper chest wall with no erythema or warmth. There are two healing incisions to right lower chest wall, one has 2 blue pacer wires coming out, no surrounding erythema or warmth. Pacemaker surgical site noted to be healing well with no signs of infection. Patient has global chest wall tenderness. GASTROINTESTINAL: Abdomen is soft, non-tender, and nondistended. MUSCULOSKELETAL: There is slight swelling to right anterior thigh just above the knee with exquisite tenderness to palpation. No obvious deformities, cyanosis, or ecchymosis is present throughout the upper and lower extremities. Patient has full range of motion without any signs of neurovascular compromise. DP pulses are 2+ bilaterally. NEUROLOGICAL: Awake, alert, and oriented. Normal speech and gait. Cranial nerves are grossly intact. Medications and IVs Current Medications Medications (Trade) Dose Ordered Sig/Neto Route Start Time Stop Time Status Last Admin (NS 1000 ml Inj) 1,000 ml @ 83 mls/hr Q12H3M IV 07/30/16 16:00 07/30/16 16:28 (NS Flush) 2 ml UNSCH PRN IV FLUSH 07/30/16 15:30 (NS Flush) 2 ml BID IV FLUSH 07/30/16 21:00 07/31/16 08:41 (Tylenol) 650 mg Q4H PRN PO 07/30/16 15:30 (Zofran Inj) 4 mg Q6H PRN IVP 07/30/16 15:30 (Reglan Inj) 5 mg Q6H PRN IV PUSH 07/30/16 15:30 (Dulcolax Supp) 10 mg DAILY PRN [place] 07/30/16 15:30 (Colace) 100 mg Q12H PO 07/30/16 21:00 07/31/16 08:40 (Narcan Inj) 0.4 mg UNSCH PRN IV 07/30/16 15:30 Enoxaparin Sodium 50 mg 50 mg Q12HR SQ 07/30/16 21:00 07/31/16 08:41 (Ancef 2 Gm Premix) 50 ml @ 100 mls/hr Q8H IV 07/30/16 20:00 07/31/16 04:12 (Roxicodone) 10 mg Q4H PRN PO 07/30/16 22:45 07/31/16 08:40 (Dilaudid Pf Inj) 1 mg Q3H PRN IV 07/30/16 22:45 07/31/16 09:53 (Roxicodone) 5 mg Q4H PRN PO 07/30/16 22:45 A/P Assessment and Plan 1. IV drug abuse history asked for new Drug Screen even she states she abuses heroin last time one week ago. 2. Status post recent valve replacement 3 weeks ago, had Tricuspid valve replacement on 06/28/[address] by Doctor Brown and dual chamber pacemaker implantation 07/05/[address] Odonnell for symptomatic Bradycardia for complete heart block will start Anticoagulation and follow ID specialist recommendations to ask for Interventional radiology for possible Biopsy. asked for new Echocardiogram now. 3. Atypical chest pain continue Hospitalized, cardiac enzymes, cardiac monitoring. 4. Tobacco dependence strongly recommended to stop smoking 5. Alcohol abuse strongly recommended to stop alcohol abuse but the patient states she only abused Heroin and no alcohol lately. 6. Polysubstance abuse 7. severe Medical Non Compliance 8. Lung Mass questionable will follow first recommendations by ID specialist to get Interventional radiology biopsy. 9. Endocarditis but no signs of infection at this time, will follow ID specialist recommendations, asked for blood cultures. Echocardiogram followed off antibiotics. 1600 I have been notified the patient left the Hospital without notice. Left AMA Code Status Full code. Discussed Condition With Patient and nurse Miss Garcia in the room. Discharge Planning 1599 I have been notified the patient left the Hospital without notice. Left AMA Joshua Glez MD Jul 31, 2016 10:05 occlusion of the right lower lobe pulmonary artery with a high grade ostial stenosis of the left lower lobe pulmonary artery. There is no luminal filling defect seen to suggest pulmonary embolus. Findings are concerning for possible neoplastic process. I reviewed the medical records from the patient's recent admission at [facility]. She had a CT pulmonary angiogram performed their 06/19/16 that did not show these nodules in the right upper lobe. At that time it showed she had extensive pulmonary emboli with occlusion of lobar, segmental and subsegmental pulmonary arteries with bilateral lung infiltrates. doctor San discussed with Doctor Stephanie CT Surgeon at [facility] regarding the patient's epidermal pacer wires and he recommended that can be cut to the skin and was done. These lung masses are new and the patient will need to be admitted to the hospital for further evaluation and treatment. Discussed with Doctor San has to be ruled out Lung mass probable IR to evaluate , rule out infection history of Endocarditis, Status post Tricuspid valve replacement Code Status Full code. Discussed Condition With Patient and nurse in the room Discharge Planning When cleared by ID specialist. Joshua Glez MD Jul 31, 2016 10:05
--- NOTE | 2016-07-31 13:33 | EC ---
Study Study Date:07/31/2016 STUDY CONCLUSIONS SUMMARY - Left ventricle: The cavity size was normal. Wall thickness was normal. Systolic function was normal. The estimated ejection fraction was in the range of 55% to 60%. Wall motion was normal; there were no regional wall motion abnormalities. - Aortic valve: Valve area: 2.55cm^2 (Vmax). - Tricuspid valve: A bioprosthesis was present. Mild-moderate regurgitation. - Pulmonary arteries: PA peak pressure: 31mm Hg (S). If LV function is below 40, please consider prescribing an ACEI or ARB or document rationale for non-use. PROCEDURE DATA STUDY STATUS: Elective. Procedure: Transthoracic echocardiography. Image quality was good. Scanning was performed from the parasternal, apical, and subcostal acoustic windows. Study completion: The patient tolerated the procedure well. Transthoracic echocardiography. M-mode, complete 2D, complete spectral Doppler, and color Doppler. Height: Height: 64in. Weight: Weight: 109.8lb. Body mass index: BMI: 18.9kg/m^2. Body surface area: BSA: 1.52m^2. Patient status: Inpatient. CARDIAC ANATOMY LEFT VENTRICLE: The cavity size was normal. Wall thickness was normal. Systolic function was normal. The estimated ejection fraction was in the range of 55% to 60%. Wall motion was normal; there were no regional wall motion abnormalities. AORTIC VALVE: Trileaflet; normal thickness leaflets. Doppler: Transvalvular velocity was within the normal range. There was no stenosis. No regurgitation. Valve area: 2.55cm^2 (Vmax). Indexed valve area: 1.68cm^2/m^2 (Vmax). AORTA: Aortic root: The aortic root was normal in size. MITRAL VALVE: Structurally normal valve. Doppler: Transvalvular velocity was within the normal range. There was no evidence for stenosis. No regurgitation. Peak gradient: 4mm Hg (D). LEFT ATRIUM: The atrium was normal in size. RIGHT VENTRICLE: The cavity size was normal. Wall thickness was normal. PULMONIC VALVE: Doppler: Transvalvular velocity was within the normal range. There was no evidence for stenosis. Trace regurgitation. TRICUSPID VALVE: A bioprosthesis was present. Doppler: Transvalvular velocity was increased. Mild-moderate regurgitation. PULMONARY ARTERY: The main pulmonary artery was normal-sized. Systolic pressure was within the normal range. RIGHT ATRIUM: The atrium was normal in size. PERICARDIUM: There was no pericardial effusion. SYSTEMIC VEINS: Inferior vena cava: The vessel was normal in size. Patient weight: 109.8lb _Ejection fraction:_ 65-75% _Fractional shortening:_ 32% up to 5Kg 5-11.5Kg 11.6-22.9Kg 23-45Kg 45-57Kg Aortic Root 7-13 <17 13-22 17-27 17-27 LA diam 6-13 <23 24-38 33-47 37-40 RVID 10-17 7-15 7-15 7-18 8-17 LVIDd 12-22 <32 24-38 33-47 37-40 LVPW 2-4 3-6 5-7 6-8 7-8 IVS 2-4 3-6 5-7 6-8 7-8 BASIC MEASUREMENTS ADULT NORMAL Left ventricle LV internal dimension, ED, chordal *36 mm 43-52 level, PLAX LV internal dimension, ES, chordal 26.8 mm 23-38 level, PLAX Fractional shortening, chordal level, *26 % >29 PLAX LV posterior wall thickness, ED 6.87 mm IVS/LVPW ratio, ED 1.04 <1.3 Ventricular septum Septal thickness, ED 7.12 mm Aortic valve Leaflet separation 19 mm 15-26 BASIC MEASUREMENTS ADULT NORMAL Aortic valve Leaflet separation 19 mm 15-26 Aorta Root diameter, ED 23 mm 20-37 Left atrium Anterior-posterior dimension, ES 33 mm 19-40 Anterior-posterior dimension index, ES 2.17 cm/m^2 <2.2 LA/aortic root ratio 1.43 DOPPLER MEASUREMENTS ADULT NORMAL Main pulmonary artery Pressure, S *31 mm Hg =30 Pressure, ED 16 mm Hg Aortic valve Peak velocity, S 118 cm/s Valve area, Vmax 2.55 cm^2 Valve area index, Vmax 1.68 cm^2/m^2 Mitral valve Peak E-wave velocity 93.8 cm/s Peak A-wave velocity 92.8 cm/s Deceleration time *143 ms 150-230 Peak gradient, D 4 mm Hg Peak E/A ratio 1 Tricuspid valve Regurgitant peak velocity 250 cm/s Peak RV-RA gradient, S 25 mm Hg Maximal regurgitant velocity 250 cm/s Systemic veins Estimated CVP 10 mm Hg Right ventricle RV pressure, S *35 mm Hg <30 Pulmonic valve Peak velocity, S 97.7 cm/s Regurgitant velocity, ED 125 cm/s LEGEND: Mean values are shown as u=mean value. Asterisk (*) castañeda values outside specified normal range. Prepared and signed by Donnie Loera [id number]
== END 2016-07-31 11:20 | disposition left against medical advice (07) | DRG 288 ==
LOC: NEPC 10:05 → NEDA 15:28 → NEDH 19:32 → N04A 21:23
PROVIDERS: ADMIT Internal Medicine; ATTEND Internal Medicine
DX: I33.0 Acute and subacute infective endocarditis (principal); I26.90 Septic pulmonary embolism without acute cor pulmonale; Q25.6 Stenosis of pulmonary artery; J98.11 Atelectasis; I10 Essential (primary) hypertension; G40.909 Epilepsy, unspecified, not intractable, without status epilepticus; R59.0 Localized enlarged lymph nodes; B95.61 Methicillin susceptible Staphylococcus aureus infection as the cause of diseases classified elsewhere; M79.651 Pain in right thigh; F32.9 Major depressive disorder, single episode, unspecified; F11.10 Opioid abuse, uncomplicated; F10.10 Alcohol abuse, uncomplicated; F17.200 Nicotine dependence, unspecified, uncomplicated; F19.10 Other psychoactive substance abuse, uncomplicated; F43.10 Post-traumatic stress disorder, unspecified; Z86.711 Personal history of pulmonary embolism; Z88.1 Allergy status to other antibiotic agents; Z88.6 Allergy status to analgesic agent; Z91.040 Latex allergy status; Z91.19 Patient's noncompliance with other medical treatment and regimen; Z95.0 Presence of cardiac pacemaker; Z95.2 Presence of prosthetic heart valve
CPT/HCPCS: 71010; 71275; 73552; 80048; 80053; 80307; 81001; 82550; 83605; 83690; 83735; 84484; 84703; 85025; 85610; 85652; 85730; 86140; 87040; 93005; 93306; 93971; 96374; J0690; J1170; J1650; J2060; J7030; Q9967